=== PATIENT | male | born 1955 | race Caucasian/White ===

== ENCOUNTER 2021-09-14 10:18 | Outpatient (CLI) | payer OTHER | END 2021-09-14 10:19 | disposition home or self-care (01) | LOC: RAD 10:18 | PROVIDERS: ATTEND Internal Medicine Pulmonary Disease | DX: R06.09 Other forms of dyspnea (principal) | CPT/HCPCS: 71046 ==

== ENCOUNTER 2024-07-01 11:15 | Inpatient (IN) | payer MEDICARE ==
[2024-07-01] MEDS ORDERED: HYDROmorphone 0.5 MG/0.5 ML SYRINGE ONE ×2 (12:02→15:18)
[2024-07-01] MEDS ORDERED: Piperacillin/Tazobactam 3.375 GM VIAL ONE (12:03)
[2024-07-01] MEDS ORDERED: Ondansetron PF 4 MG/2 ML Vial ONE (12:03)
[2024-07-01] MEDS ORDERED: Furosemide 40 MG (4 mL) VIAL ONE (12:03)
[2024-07-01] MEDS ORDERED: Sodium Chloride 0.9% 100 ML ONE (12:03)
[2024-07-01] MEDS ORDERED: Ipratropium/Albuterol 3 ML NEB ONE (12:24)
[2024-07-01 12:39] LABS: #Basophils 0.12 10x3/uL (0.0-0.2); %Lymphocytes 6.8 % (21.0-51.0); %Monocytes 16.9 % (0.0-10.0); %Neutrophils 72.5 % (42.0-75.0); Hematocrit 29.1 % (42.0-52.0); Hemoglobin 8.4 g/dL (14.0-18.0); Mean Corpuscular HGB CONC 28.9 g/dL (32.0-36.0); Mean Corpuscular Hemoglobin 23.4 pg (27.0-31.0); Mean Corpuscular Volume 81.1 fL (78.0-98.0); Platelet Count 483 10x3/uL (130-400); RBC Distribution Width 22.2 % (11.5-14.5); Red Blood Cell (RBC) Count 3.59 mill/uL (4.70-6.10)
[2024-07-01 12:59] LABS: ALT (SGPT) 32 U/L (Less than 45); AST (SGOT) 52 U/L (11-34); Albumin 3.1 g/dL (3.1-4.5); Alkaline Phosphatase 78 U/L (40-110); Anion Gap 14 mmol/L (10-20); BUN (Urea Nitrogen) 23 mg/dL (8.4-25.7); Bilirubin, Total 0.2 mg/dL (0.3-1.2); Calc. Creatinine Clearance 0 mL/min (70-130); Calcium 9.8 mg/dL (7.8-10.44); Carbon Dioxide 28 mmol/L (23-31); Chloride 103 mmol/L (98-107); Estimated GFR 92; Globulin 4.3 g/dL (2.4-3.5); Glucose 126 mg/dL (80-115); Potassium 4.3 mmol/L (3.5-5.1); Protein, Total 7.4 g/dL (5.8-8.1); Sodium 141 mmol/L (136-145)
[2024-07-01 13:00] LABS: Troponin I Less than 0.010 ng/mL (< 0.028)
[2024-07-01 13:04] LABS: Anisocytosis SLIGHT = 6-15 cells HPF (0-5); Hypochromia SLIGHT = 6-15 cells HPF (0-5); Platelet Adequacy Comment Platelets Increased; Polychromasia MODERATE = 3-4 cells HPF (0-2); Schistocytes SLIGHT = 2-5 cells HPF (0-1); Stomatocytes SLIGHT = 2-5 cells HPF (0-1)
[2024-07-01] MEDS ORDERED: Insulin Lispro 100 UNIT/ML 10 ML VIAL SC PRN ×2 (17:50)
[2024-07-01] MEDS ORDERED: Acetaminophen 650 MG Suppository PR PRN (17:50)
[2024-07-01] MEDS ORDERED: Ondansetron ODT 4 MG TAB PO PRN (17:50)
[2024-07-01] MEDS ORDERED: Dextrose 5% in Water 1,000 ML IV PRN (17:50)
[2024-07-01] MEDS ORDERED: Acetaminophen 325 MG TAB PO PRN (17:50)
[2024-07-01] MEDS ORDERED: Calcium Carbonate 500 MG ChewTAB PO PRN (17:50)
[2024-07-01] MEDS ORDERED: Glucagon 1 MG/ML KIT IM PRN (17:50)
[2024-07-01] MEDS ORDERED: Dextrose 50% Abboject 50 ML SYRINGE SLOW IVP PRN (17:50)
[2024-07-01] MEDS ORDERED: Senokot S 8.6-50 MG TAB PO PRN (17:50)
[2024-07-01] MEDS ORDERED: Electrolyte Replacement Protocol 1 EACH FS SCH (18:00)
[2024-07-01] MEDS: Mometasone 200 MCG/Formoterol 5 MCG 120 PUFF INHALER INH SCH (19:16)
[2024-07-01] MEDS ORDERED: Morphine 4 MG/ML VIAL ONE ×2 (19:40→22:27)
[2024-07-01] MEDS: Morphine 4 MG/ML VIAL SLOW IVP PRN (19:46)
[2024-07-01 20:55] VITALS: BMI 28.4
[2024-07-01] MEDS: Vancomycin (BATCH) 2 GM in Premix 1 BAG IVPB SCH (20:56)
[2024-07-01] MEDS: Piperacillin/Tazobactam 3.375 GM in Sodium Chloride 0.9% 100 ML IVPB SCH (21:08)
[2024-07-01 22:58] LABS: Bacteria/HPF None Seen HPF (None Seen); Bilirubin Negative (Negative); Blood, Urine Negative (Negative); CAUTI Indications for Culture Alt mental st,lethar; Clarity Clear (Clear); Glucose, Urine (Dipstick) Normal (Negative); Ketone, Urine Negative (Negative); Leukocyte 25 Leu/uL (Negative); Nitrite Negative (Negative); Protein, Urine (Dipstick) 20 mg/dL (Neg-Trace); RBC/HPF 0-3 HPF (0-3); Specific Gravity, Urine 1.023 (1.002-1.036); Squamous Epithelial None Seen HPF (0-3); Urobilinogen Normal mg/dL (Less than 2); pH, Urine 5.5 (5.0-9.0)
[2024-07-01 23:21] LABS: Urine Culture Reflex No No
[2024-07-01] MEDS ORDERED: HYDROcodone/Acetaminophen 5/325 mg Tablet ONE (23:56)
[2024-07-02] MEDS: HYDROcodone/Acetaminophen 5/325 mg Tablet PO PRN (00:06)
[2024-07-02] MEDS ORDERED: Morphine 4 MG/ML VIAL ONE ×2 (03:01→06:39)
[2024-07-02] MEDS ORDERED: Sodium Chloride 0.9% 100 ML ONE (03:46)
[2024-07-02] MEDS ORDERED: Piperacillin/Tazobactam 3.375 GM VIAL ONE (03:47)
[2024-07-02 04:13] LABS: #Basophils 0.11 10x3/uL (0.0-0.2); %Basophils 1.1 % (0.0-1.0); %Eosinophils 3.1 % (0.0-10.0); %Lymphocytes 17.6 % (21.0-51.0); %Neutrophils 61.6 % (42.0-75.0); Hematocrit 25.2 % (42.0-52.0); Hemoglobin 7.4 g/dL (14.0-18.0); Mean Corpuscular HGB CONC 29.4 g/dL (32.0-36.0); Mean Corpuscular Hemoglobin 23.8 pg (27.0-31.0); Mean Platelet Volume 8.8 fL (7.4-10.4); Platelet Count 437 10x3/uL (130-400); RBC Distribution Width 22.5 % (11.5-14.5); Red Blood Cell (RBC) Count 3.11 mill/uL (4.70-6.10)
[2024-07-02 04:38] LABS: Anion Gap 14 mmol/L (10-20); BUN (Urea Nitrogen) 24 mg/dL (8.4-25.7); Calc. Creatinine Clearance 88 mL/min (70-130); Calcium 9.3 mg/dL (7.8-10.44); Carbon Dioxide 28 mmol/L (23-31); Chloride 102 mmol/L (98-107); Estimated GFR 91; Glucose 92 mg/dL (80-115); Potassium 4.9 mmol/L (3.5-5.1); Sodium 139 mmol/L (136-145); Vancomycin, Random 16.6 ug/mL (See Comment)
[2024-07-02] MEDS ORDERED: Electrolyte Replacement Protocol FS PRN (07:15)
[2024-07-02] MEDS ORDERED: Vancomycin 1 GM in Premix 1 BAG IVPB SCH (09:00)
[2024-07-02] MEDS ORDERED: Clopidogrel Bisulfate 75 MG TAB ONE (10:52)
[2024-07-02] MEDS ORDERED: Morphine 2 MG/ML VIAL ONE (10:52)
[2024-07-02] MEDS ORDERED: Aspirin Chewable 81 MG TAB ONE (10:52)
[2024-07-02] MEDS ORDERED: Furosemide 40 MG TAB ONE (10:52)
[2024-07-02] MEDS ORDERED: Enoxaparin 40 MG (0.4 mL) SYRINGE ONE (10:53)
[2024-07-02] MEDS ORDERED: Carvedilol 6.25 MG TAB ONE (10:53)
[2024-07-02] MEDS: Aspirin 81 mg Enteric Coated Tablet PO SCH (10:57)
[2024-07-02] MEDS: Clopidogrel Bisulfate 75 MG TAB PO SCH (10:57)
[2024-07-02] MEDS: Enoxaparin 40 MG (0.4 mL) SYRINGE SC SCH (10:57)
[2024-07-02] MEDS: Carvedilol 6.25 MG TAB PO SCH (10:58)
[2024-07-02] MEDS: Furosemide 40 MG TAB PO SCH (10:58)
[2024-07-02 12:37] LABS: Vancomycin, Random 10.5 ug/mL (See Comment)
[2024-07-02] MEDS: Losartan 25 MG TAB PO SCH (13:21)
[2024-07-02] MEDS ORDERED: Vancomycin (BATCH) 1.75 GM in Premix 1 BAG IVPB SCH (14:00)
[2024-07-02] MEDS: Vancomycin (BATCH) 1.75 GM in Premix 1 BAG IVPB SCH (17:23)
[2024-07-03] MEDS: Ketorolac Tromethamine 30 MG (1 mL) VIAL IVP PRN (04:31)
[2024-07-03 05:24] LABS: #Basophils 0.09 10x3/uL (0.0-0.2); %Basophils 0.9 % (0.0-1.0); %Eosinophils 3.8 % (0.0-10.0); %Lymphocytes 14.2 % (21.0-51.0); %Monocytes 14.4 % (0.0-10.0); Hematocrit 27.9 % (42.0-52.0); Mean Corpuscular HGB CONC 28.7 g/dL (32.0-36.0); Mean Corpuscular Hemoglobin 23.1 pg (27.0-31.0); Mean Corpuscular Volume 80.4 fL (78.0-98.0); Mean Platelet Volume 9.1 fL (7.4-10.4); Platelet Count 465 10x3/uL (130-400); RBC Distribution Width 22.1 % (11.5-14.5); Red Blood Cell (RBC) Count 3.47 mill/uL (4.70-6.10)
[2024-07-03 05:46] LABS: Anion Gap 14 mmol/L (10-20); BUN (Urea Nitrogen) 24 mg/dL (8.4-25.7); Calc. Creatinine Clearance 86 mL/min (70-130); Calcium 9.7 mg/dL (7.8-10.44); Carbon Dioxide 27 mmol/L (23-31); Chloride 101 mmol/L (98-107); Estimated GFR 88; Glucose 92 mg/dL (80-115); Potassium 4.7 mmol/L (3.5-5.1); Sodium 137 mmol/L (136-145)
[2024-07-03 10:41] VITALS: BMI 28.4
[2024-07-03] MEDS: Cefepime 2 GM in Sodium Chloride 0.9% 100 ML IVPB SCH (13:50)
[2024-07-03] MEDS: Ondansetron PF 4 MG/2 ML Vial IVP PRN (13:58)
[2024-07-03] MEDS: fentaNYL 50 mcg/mL 1 mL Vial SLOW IVP SCH (15:30)
[2024-07-03] MEDS: glipiZIDE 5 MG TAB PO SCH (16:26)
[2024-07-03] MEDS: Dronedarone HCl 400 MG TAB PO SCH (16:27)
[2024-07-03] MEDS: Sacubitril 49 MG/Valsartan 51 MG TABLET PO SCH (21:09)
[2024-07-04 06:41] LABS: Anion Gap 14 mmol/L (10-20); BUN (Urea Nitrogen) 29 mg/dL (8.4-25.7); CRP,High Sensitivity (Inhouse) 1.31 mg/dL (< or = 0.5); Calc. Creatinine Clearance 91 mL/min (70-130); Calcium 9.4 mg/dL (7.8-10.44); Carbon Dioxide 26 mmol/L (23-31); Chloride 102 mmol/L (98-107); Estimated GFR 94; Glucose 93 mg/dL (80-115); Potassium 4.9 mmol/L (3.5-5.1); Sodium 137 mmol/L (136-145)
[2024-07-04] MEDS: Aspirin 81 mg Enteric Coated Tablet PO SCH (08:15)
[2024-07-04] MEDS: Spironolactone 25 MG TAB PO SCH (08:15)
[2024-07-04 08:17] LABS: #Basophils 0.06 10x3/uL (0.0-0.2); %Basophils 0.6 % (0.0-1.0); %Eosinophils 3.8 % (0.0-10.0); %Lymphocytes 8.7 % (21.0-51.0); %Neutrophils 72.6 % (42.0-75.0); Hematocrit 27.1 % (42.0-52.0); Hemoglobin 7.8 g/dL (14.0-18.0); Mean Corpuscular HGB CONC 28.8 g/dL (32.0-36.0); Mean Corpuscular Hemoglobin 23.5 pg (27.0-31.0); Mean Corpuscular Volume 81.6 fL (78.0-98.0); Mean Platelet Volume 9.3 fL (7.4-10.4); Platelet Count 463 10x3/uL (130-400); RBC Distribution Width 22.1 % (11.5-14.5); Red Blood Cell (RBC) Count 3.32 mill/uL (4.70-6.10)
[2024-07-04 08:19] LABS: Anisocytosis SLIGHT = 6-15 cells HPF (0-5); Elliptocytes SLIGHT = 2-5 cells HPF (0-1); Hypochromia MODERATE=16-30 cells HPF (0-5); Macrocytosis SLIGHT = 6-15 cells HPF (0-5); Platelet Adequacy Comment Platelets Increased; Polychromasia MODERATE = 3-4 cells HPF (0-2); Stomatocytes MODERATE= 6-15 cells HPF (0-1)
[2024-07-04] MEDS: Saxagliptin 5 MG TABLET PO SCH (08:44)
[2024-07-04] MEDS: Vancomycin 1.5 GRAM/300 ML BAG 1.5 GM in Premix 1 BAG IVPB SCH (15:24)
[2024-07-05 05:20] LABS: #Basophils 0.08 10x3/uL (0.0-0.2); %Basophils 0.7 % (0.0-1.0); %Eosinophils 4.7 % (0.0-10.0); %Lymphocytes 8.8 % (21.0-51.0); %Monocytes 13.2 % (0.0-10.0); %Neutrophils 71.1 % (42.0-75.0); Hematocrit 27.6 % (42.0-52.0); Hemoglobin 7.9 g/dL (14.0-18.0); Mean Corpuscular HGB CONC 28.6 g/dL (32.0-36.0); Mean Corpuscular Hemoglobin 23.2 pg (27.0-31.0); Mean Corpuscular Volume 80.9 fL (78.0-98.0); Platelet Count 440 10x3/uL (130-400); RBC Distribution Width 21.5 % (11.5-14.5); Red Blood Cell (RBC) Count 3.41 mill/uL (4.70-6.10)
[2024-07-05 05:29] LABS: Anion Gap 13 mmol/L (10-20); BUN (Urea Nitrogen) 29 mg/dL (8.4-25.7); Calc. Creatinine Clearance 79 mL/min (70-130); Calcium 9.8 mg/dL (7.8-10.44); Carbon Dioxide 27 mmol/L (23-31); Chloride 101 mmol/L (98-107); Estimated GFR 79; Glucose 112 mg/dL (80-115); Potassium 5.1 mmol/L (3.5-5.1); Sodium 136 mmol/L (136-145)
[2024-07-05 12:35] VITALS: BP 94/53; TEMP 97.7
== END 2024-07-05 12:32 | disposition home or self-care (01) | DRG 871 ==
LOC: ERS 11:15 → T4-B 17:27 → OBSVTOIN 17:34 → ERHOLD 17:34 → T4-B 07-02 12:52
PROVIDERS: ADMIT Internal Medicine; ATTEND Family Medicine
DX: A41.9 Sepsis, unspecified organism (principal); I50.23 Acute on chronic systolic (congestive) heart failure; L03.116 Cellulitis of left lower limb; M86.8X7 Other osteomyelitis, ankle and foot; I11.0 Hypertensive heart disease with heart failure; E11.51 Type 2 diabetes mellitus with diabetic peripheral angiopathy without gangrene; J44.9 Chronic obstructive pulmonary disease, unspecified; B19.20 Unspecified viral hepatitis C without hepatic coma; D63.8 Anemia in other chronic diseases classified elsewhere; F17.210 Nicotine dependence, cigarettes, uncomplicated; F10.90 Alcohol use, unspecified, uncomplicated; E11.69 Type 2 diabetes mellitus with other specified complication; Z98.890 Other specified postprocedural states
CPT/HCPCS: 36415; 36416; 71045; 80048; 80053; 80202; 81001; 83605; 83880; 84484; 85025; 86141; 87040; 87086; 93005; 94664; 96365; 96366; 96367; 96375; 96376; J0692; J1171; J1650; J1885; J1940; J2270; J2272; J2405; J2543; J3010; J3370; J7620